=== PATIENT | female | born 1940 | race Caucasian/White ===

== ENCOUNTER → 2016-09-15 | Outpatient (REF) | payer OTHER ==
[~2016-09-15] MED LIST: /BENA20TA OR; /PRAV20TA OR; ACET500C OR; ACTO30TA OR; AMLO10TA OR; ASPI81TA83 OR; FERR325T OR; FURO20TA2 OR; GLUC1000 OR; HEPARIN LOCK FLUSH IVP; JANUVIA PO; LOTREL PO; MULTIVIT PO; PERC5TAB8 OR; RIFA300C3 OR; SALINE LOCK FLUSH IVP; TOPR100T OR; VANCOMYCIN IV
== END ==
LOC: M LAB REF 16:54
PROVIDERS: ATTEND Physician Assistant Medical
DX: N39.9 Disorder of urinary system, unspecified (principal); Z79.899 Other long term (current) drug therapy

== ENCOUNTER 2025-03-04 16:55 | Observation (INO) | payer MEDICARE ==
[~2025-03-04] VITALS: Ht 147.3 cm; Wt 55.4 kg
[~2025-03-04 16:55] MED LIST changes: -/PRAV20TA OR; +METO-745 OR; +PRAV1TAB39 OR; -TOPR100T OR
[2025-03-04 18:17] LABS: BASO # 0.1 10^3/uL (0.0-0.2); BASO % 0.8 % (0.0-1.0); EOS # 0.5 10^3/uL (0.0-0.5); EOS % 4.8 % (0.0-3.0); LYMPH # 1.6 10^3/uL (1.5-5.0); LYMPH % 16.5 % (24.0-44.0); MONO # 0.6 10^3/uL (0.0-0.8); MONO % 6.3 % (2.0-8.0); NEUTROPHILS # 6.8 10^3/uL (1.5-8.5); NEUTROPHILS % 71.4 % (36.0-66.0); PLATELET COUNT, AUTOMATED 294 10^3/uL (150-450)
[2025-03-04 18:51] LABS: ALT/SGPT 33.0 U/L (7.0-40); AST/SGOT 36.0 U/L (<34); CALCIUM LEVEL 9.3 MG/DL (8.3-10.6); CARBON DIOXIDE LEVEL 26.0 MMOL/L (20-31); CHLORIDE LEVEL 108.0 MMOL/L (98-107); CREATININE FOR GFR 1.14 MG/DL (0.55-1.30); GLOMERULAR FILTRATION RATE 47.2 (>32); POTASSIUM SERUM 4.1 MMOL/L (3.5-5.1); SODIUM LEVEL 146.0 MMOL/L (136-145)
[2025-03-04 19:59] LABS: KETONE, URINE AUTO RFX NEGATIVE (NEGATIVE); LEUKOCYTE ESTERASE UR AUTO RFX 3+ (NEGATIVE); MUCUS, URINE RFX SMALL (NEGATIVE); NITRITE, URINE AUTO RFX POSITIVE (NEGATIVE); RBC, URINE AUTO RFX 42 /HPF (0-3); SQUAM EPITHELIAL CELL UR AURFX 5 /HPF (0-6); WBC, URINE AUTO RFX TNTC /HPF (0-3); YEAST LIKE CELL URINE AUTO RFX LARGE
[2025-03-04] MEDS ORDERED: PRAV20TA78 PO (21:33)
[2025-03-04] MEDS ORDERED: JARD1TAB PO (21:33)
[2025-03-04] MEDS ORDERED: NYST1POW3 TOP (21:33)
[2025-03-04] MEDS ORDERED: ECOT81TA5 PO (21:33)
[2025-03-04] MEDS ORDERED: SENN1TAB96 PO (21:33)
[2025-03-04] MEDS ORDERED: ALLO100T PO (21:33)
[2025-03-04] MEDS ORDERED: ACET-1593 PO (21:33)
[2025-03-04] MEDS ORDERED: TOPR100T PO (21:35)
[2025-03-04] MEDS ORDERED: THERTAB52 PO (21:35)
[2025-03-04] MEDS ORDERED: JARD1TAB3 PO (21:42)
[2025-03-04] MEDS ORDERED: PANT40TA29 PO (21:42)
[2025-03-04] MEDS ORDERED: FAMO1TAB11 PO (21:42)
[2025-03-04] MEDS ORDERED: MED REC COMMENT (21:42)
[2025-03-04] MEDS: cefTRIAXone SOD 1 GM in DEXTROSE 5% (D5W) ADV/MINI-BAG 50 ML IV ONE (21:43)
[2025-03-04] MEDS ORDERED: HOME MED LIST COMPLETE! XX SCH (21:45)
[2025-03-04] MEDS ORDERED: ACETAMINOPHEN 325 MG TAB PO PRN (23:40)
[2025-03-04] MEDS ORDERED: MOM 30 ML SUSPENSION UDC PO PRN (23:40)
[2025-03-04] MEDS ORDERED: GLUCAGON INJ 1 MG VIAL SC PRN (23:40)
[2025-03-04] MEDS ORDERED: DEXTROSE 50% 50 ML SYRINGE IV PRN (23:40)
[2025-03-04] MEDS ORDERED: GLUCOSE 4 GM CHEW PO PRN (23:40)
[2025-03-05] MEDS: FLUCONAZOLE 50 MG TABLET PO ONE (01:00)
[2025-03-05 06:57] LABS: BASO # 0.1 10^3/uL (0.0-0.2); BASO % 1.0 % (0.0-1.0); EOS # 0.6 10^3/uL (0.0-0.5); EOS % 7.1 % (0.0-3.0); LYMPH # 1.9 10^3/uL (1.5-5.0); LYMPH % 23.5 % (24.0-44.0); MONO # 0.6 10^3/uL (0.0-0.8); MONO % 7.8 % (2.0-8.0); NEUTROPHILS # 4.8 10^3/uL (1.5-8.5); NEUTROPHILS % 60.4 % (36.0-66.0); PLATELET COUNT, AUTOMATED 279 10^3/uL (150-450)
[2025-03-05] MEDS: INSULIN LISPRO (NovoLOG) PER UNIT SC SCH ×2 (07:30→20:51)
[2025-03-05 07:33] LABS: C REACTIVE PROTEIN QUANTITATIV < 0.50 MG/DL (<1.0)
[2025-03-05 07:34] LABS: ALT/SGPT 26 U/L (7.0-40); AST/SGOT 29 U/L (<34); CALCIUM LEVEL 9.0 MG/DL (8.3-10.6); CARBON DIOXIDE LEVEL 26 MMOL/L (20-31); CHLORIDE LEVEL 108 MMOL/L (98-107); CREATININE FOR GFR 1.05 MG/DL (0.55-1.30); GLOMERULAR FILTRATION RATE 52.1 (>32); MAGNESIUM LEVEL 1.9 MG/DL (1.8-2.4); POTASSIUM SERUM 3.6 MMOL/L (3.5-5.1); SODIUM LEVEL 145 MMOL/L (136-145)
[2025-03-05] MEDS: DOCUSATE SODIUM 100 MG CAPSULE PO SCH (09:00)
[2025-03-05] MEDS ORDERED: ACETAMINOPHEN 650 MG ER TAB PO PRN (09:25)
[2025-03-05] MEDS: cefTRIAXone SOD 2 GM in DEXTROSE 5% (D5W) ADV/MINI-BAG 50 ML IV SCH (09:48)
[2025-03-05] MEDS: PANTOPRAZOLE 40MG VIAL IV SCH (09:48)
[2025-03-05] MEDS: ENOXAPARIN 30 MG/0.3 ML SYRINGE (J1650 PER 10MG) SC SCH (09:48)
[2025-03-05 12:25] VITALS: BP 144/62; TEMP 97; O2SAT 97
[2025-03-05 12:45] VITALS: BP 144/64; TEMP 97; O2SAT 97
[2025-03-05] MEDS: CLOTRIMAZOLE 1% TOPICAL CREAM 30 GM TOP SCH (13:07)
[2025-03-05] MEDS: MOM 30 ML SUSPENSION UDC PO SCH (14:37)
[2025-03-05] MEDS: PRAVASTATIN 20 MG TAB PO SCH (20:35)
[2025-03-05] MEDS: SENNOSIDES/DOCUSATE SODIUM 8.6 MG/50MG TAB PO SCH (20:35)
[2025-03-05] MEDS: ASPIRIN 81 MG ENTERIC TABLET PO SCH (20:35)
[2025-03-05 20:46] VITALS: BP 154/70; TEMP 97.4; O2SAT 97
[2025-03-06 03:22] VITALS: BP 135/63; TEMP 97.3; O2SAT 97
[2025-03-06] MEDS: PANTOPRAZOLE 40MG TAB PO SCH (08:15)
[2025-03-06] MEDS: ERTAPENEM SODIUM 1 GM in NS MINI-BAG PLUS 50 ML IV ONE (08:16)
[2025-03-06] MEDS ORDERED: FOSF3PAC2 PO (11:25)
[2025-03-06] MEDS ORDERED: DEBR6.5S4 AS (11:52)
[2025-03-06 11:54] VITALS: BP 144/53; TEMP 97; O2SAT 96
[2025-03-06] MEDS: PREVNAR-20 VACCINE 0.5ML SYRINGE IM.IMMUN ONE (13:04)
== END 2025-03-06 13:36 | disposition home or self-care (01) ==
LOC: M ED 16:55 → M ED INP 16:56 → EEVIPCON 16:56 → M MSPAV 03-05 12:29
PROVIDERS: ADMIT Student in an Organized Health Care Education/Training Program; ATTEND Internal Medicine
DX: N39.0 Urinary tract infection, site not specified (principal); Z16.12 Extended spectrum beta lactamase (ESBL) resistance; B96.20 Unspecified Escherichia coli [E. coli] as the cause of diseases classified elsewhere; Z23 Encounter for immunization; F03.90 Unspecified dementia, unspecified severity, without behavioral disturbance, psychotic disturbance, mood disturbance, and anxiety; I12.9 Hypertensive chronic kidney disease with stage 1 through stage 4 chronic kidney disease, or unspecified chronic kidney disease; N18.30 Chronic kidney disease, stage 3 unspecified; E11.9 Type 2 diabetes mellitus without complications; R00.1 Bradycardia, unspecified; K21.9 Gastro-esophageal reflux disease without esophagitis; R32 Unspecified urinary incontinence; M10.9 Gout, unspecified; G93.40 Encephalopathy, unspecified; Z79.82 Long term (current) use of aspirin; Z79.899 Other long term (current) drug therapy
CPT/HCPCS: 36415; 70450; 71045; 72125; 72170; 73560; 74018; 80048; 80053; 80076; 81001; 82140; 83735; 84145; 84443; 85025; 86140; 87040; 87088; 87186; 90677; 92610; 93005; 93041; 94760; 96365; 96366; 96367; 96372; 96375; 97116; 97161; 97165; 97530; 99285; G0009; G0378; J0696; J1335; J1650; J1815; J2470

== ENCOUNTER → 2025-04-23 | Outpatient (REF) | payer MEDICARE, MEDICAID ==
[~2025-04-23] MED LIST changes: +ACET-1593 PO; +ALLO100T PO; +DEBR6.5S4 AS; +ECOT81TA5 PO; +FAMO1TAB11 PO; +FOSF3PAC2 PO; +JARD1TAB PO; +JARD1TAB3 PO; +MED REC COMMENT; +NYST1POW3 TOP; +PANT40TA29 PO; +PRAV20TA78 PO; +SENN1TAB96 PO; +THERTAB52 PO; +TOPR100T PO
[2025-04-23 13:20] LABS: APPEARANCE, URINE HAZY (CLEAR); BACTERIA, URINE AUTO 3+ (NEGATIVE); BILIRUBIN, URINE AUTO NEGATIVE (NEGATIVE); BLOOD, URINE BLOOD NEGATIVE (NEGATIVE); GLUCOSE, URINE (UA) AUTO NEGATIVE (NEGATIVE); KETONE, URINE AUTO NEGATIVE (NEGATIVE); LEUKOCYTE ESTERASE, URINE AUTO 1+ (NEGATIVE); NITRITE, URINE AUTO POSITIVE (NEGATIVE); PROTEIN, URINE AUTO NEGATIVE (NEGATIVE); RBC, URINE AUTO 1 /HPF (0-3); SPECIFIC GRAVITY URINE AUTO 1.011 (1.002-1.035); SQUAMOUS EPITHELIAL CELL UR AU 5 /HPF (0-6); UROBILINOGEN, URINE AUTO 0.2 mg/dL (0.0-2.0); WBC, URINE AUTO 5 /HPF (0-3)
== END ==
LOC: M LAB REF 12:07
PROVIDERS: ATTEND Registered Nurse
DX: N39.0 Urinary tract infection, site not specified (principal)

== ENCOUNTER → 2025-04-27 | Outpatient (REF) | payer MEDICARE, MEDICAID, OTHER ==
[2025-04-27 14:15] LABS: PLATELET COUNT, AUTOMATED 281 10^3/uL (150-450)
[2025-04-27 14:45] LABS: ESTIMATED AVERAGE GLUCOSE 137.0 MG/DL (60-110)
[2025-04-27 14:50] LABS: FREE T4 1.3 NG/DL (0.89-1.76)
[2025-04-27 14:52] LABS: ALT/SGPT 39.0 U/L (7.0-40); AST/SGOT 25.0 U/L (<34); CALCIUM LEVEL 8.9 MG/DL (8.3-10.6); CARBON DIOXIDE LEVEL 28.0 MMOL/L (20-31); CHLORIDE LEVEL 103.0 MMOL/L (98-107); CHOLESTEROL LEVEL 181.0 MG/DL (<200); CHOLESTEROL RISK RATIO 3.22 (<5); CREATININE FOR GFR 0.91 MG/DL (0.55-1.30); GLOMERULAR FILTRATION RATE 61.4 (>32); LDL CHOLESTEROL 101.4 MG/DL (<100); NON-HDL-C 124.8 MG/DL; POTASSIUM SERUM 4.2 MMOL/L (3.5-5.1); SODIUM LEVEL 145.0 MMOL/L (136-145); TRIGLYCERIDES LEVEL 117.0 MG/DL (<150)
== END ==
LOC: M LAB REF 14:15
PROVIDERS: ATTEND Registered Nurse
DX: N39.0 Urinary tract infection, site not specified (principal); Z79.899 Other long term (current) drug therapy